=== PATIENT | female | born 1950 | race Hispanic/Latino ===

== ENCOUNTER 2020-09-05 07:36 | Day surgery (SDC) | payer MEDICARE ==
--- NOTE | 2020-09-02 11:48 | Anesthesia Consultation ---
Anesthesia Consult and Med Hx Date of service: 09/05/20 - Airway Anesthetic Teeth Evaluation: Good ROM Head & Neck: Adequate Mental/Hyoid Distance: Adequate Mallampati Class: Class II Intubation Access Assessment: Probably Good - Pulmonary Exam CTA: Yes - Cardiac Exam Cardiac Exam: RRR - Pre-Operative Health Status ASA Pre-Surgery Classification: ASA3 Proposed Anesthetic Plan: General - Pulmonary Hx Smoking: No Hx Respiratory Symptoms: No - Cardiovascular System Hx Hypertension: No Hx Heart Attack/AMI: No Hx Percutaneous Transluminal Coronary Angioplasty (PTCA): No Hx Cardia Arrhythmia: Yes (paroxysmal a-fib; to hole Elquis 48hrs prior to procedure) Hx Pacemaker: No Hx Internal Defibrillator: No - Central Nervous System CVA: No - Endocrine Hx Renal Disease: No Hx Liver Disease: No Hx Insulin Dependent Diabetes: No Hx Non-Insulin Dependent Diabetes: No Hx Hypothyroidism: Yes - Other Systems Hx Obesity: No - Additional Comments Anesthesia Medical History Comments: No hx anesthetic complications.
--- NOTE | 2020-09-05 07:30 | Anesthesia Day of Surgery ---
Anesthesia Day of Surgery - Day of Surgery Patient Examined: Yes Patient H&P Reviewed: Yes Patient is NPO: Yes
[~2020-09-05 07:36] MED LIST: BACTERIOSTATIC SODIUM CHLORIDE 0.9% 30 ML VIAL INFILTRATI ONE; HYDROcodone/ACETAMINOPHEN 5-325 MG TAB PO PRN; LACTATED RINGERS 1,000 ML IV SCH; LIDOCAINE MPF (2%) 20 MG/1 ML VIAL 5 ML ONE; MIDAZOLAM 2 MG/2 ML INJ IV NR; ONDANSETRON 4 MG/2 ML INJ IV PRN; ONDANSETRON 4 MG/2 ML INJ ONE; ceFAZolin/Water 2 GM/20 ML 2 GM/20 ML SYRINGE IV NR; dexAMETHasone 20 MG/5 ML VIAL ONE; ePHEDrine SULFATE 50 MG/1 ML INJ ONE; fentaNYL 100 MCG/2 ML INJ ONE; propofoL 200 MG/20 ML VIAL IV ONE
--- NOTE | 2020-09-05 08:39 | Short Stay Summary ---
Short Stay Documentation Date of service: 09/05/20 - History H&P: obtained from office - Allergies and Medications Current Medications: Allergies No Known Allergies Allergy (Unverified 08/27/20 13:35) Home Medications Medication Instructions Recorded Confirmed Last Taken Type Apixaban [Eliquis] 5 mg PO BID 08/27/20 09/02/20 09/02/20 History Calcium Citrate/Vitamin D3 1 each PO QDAY 08/27/20 08/27/20 09/04/20 History [Citracal + D Maximum Caplet] Dofetilide [Tikosyn] 500 mcg PO BID 08/27/20 08/27/20 09/05/20 05:00 History Fexofenadine HCl [Anastasia Allergy] 180 mg PO QDAY 08/27/20 08/27/20 09/04/20 History Hydroxychloroquine [Plaquenil] 200 mg PO BID 08/27/20 08/27/20 09/04/20 History Levothyroxine [Synthroid] 50 mcg PO QAM 08/27/20 08/27/20 09/05/20 05:00 History Multivit-Min/Iron/Folic/Lutein 1 tab PO QDAY 08/27/20 08/27/20 09/04/20 History [Multivitamin Women 50 Plus Tab] Rosuvastatin Calcium [Crestor] 10 mg PO QHS 08/27/20 08/27/20 09/04/20 History Saccharomyces Boulardii [Daily 250 mg PO QDAY 08/27/20 08/27/20 09/04/20 History Probiotic] Active Medications Hydrocodone Bitart/Acetaminophen (Hydrocodone/Acetaminophen 5-325 Mg Tab) 2 each PO ONCE PRN PRN Reason: Pain, Moderate (4-6) Stop: 09/05/20 20:00 Lactated Ringer's (Lactated Ringers) 1,000 mls @ 100 mls/hr IV DIRECT JESSICA Stop: 09/05/20 23:59 Last Admin: 09/05/20 07:05 Dose: 100 mls/hr Documented by: Cefazolin Sodium (Ancef/Sterile Water 2 Gm/20 Ml) 2 gm in 20 mls @ 80 mls/hr IV PREOP NR; Protocol Stop: 09/05/20 19:00 Midazolam HCl (Midazolam 2 Mg/2 Ml Inj) 2 mg IV ONCE NR Stop: 09/05/20 23:00 Last Admin: 09/05/20 07:08 Dose: 2 mg Documented by: Ondansetron HCl (Ondansetron 4 Mg/2 Ml Inj) 4 mg IV ONCE PRN PRN Reason: Nausea And Vomiting Stop: 09/05/20 13:00 - Brief post op/procedure progress note Date of procedure: 09/05/20 Pre-op diagnosis: left renal stone Post-op diagnosis: same Procedure: eswl---left Anesthesia: GETA Surgeon: RUPERT SHIPLEY Estimated blood loss: minimal Pathology: none Condition: stable - Hospital course Hospital course: ultram,norco,flomax,post op info on chart - Disposition Condition at discharge: Stable Disposition: DC-01 TO HOME OR SELFCARE Short Stay Discharge Plan Follow up with: WEST CHARLES MD [Primary Care Provider] - 7 Days
--- NOTE | 2020-09-05 08:48 | Operative Report ---
PREOPERATIVE DIAGNOSIS: Left renal stone, 5 mm. POSTOPERATIVE DIAGNOSIS: Left renal stone, 5 mm. PROCEDURE: Extracorporal shock wave lithotripsy. SURGEON: Jalen Singleton MD ANESTHESIA: General. ESTIMATED BLOOD LOSS: Minimal. FLUIDS: Crystalloid. COMPLICATIONS: No complications. INDICATIONS: This patient is a 70-year-old female seen in the office for left flank pain. CT of abdomen and pelvis revealed a 5 mm left stone. It was followed conservatively. She continued to have intermittent left flank pain, presents now for intervention. Cardiac clearance was obtained, so it was okay to stop her blood thinner. DESCRIPTION OF PROCEDURE: The patient was taken to the operative suite, placed in a supine position. After adequate general anesthesia, stone was localized in 2 planes using fluoroscopy. Extracorporal shock wave lithotripsy was administered with a maximum kV of ____ 2500 shocks, 5-minute renal pause after 200 shocks was performed without difficulty. Adequate fragmentation could be appreciated. The patient tolerated the procedure well. She was extubated and taken to recovery room. She will go home on [place], Ultram and Flomax. Strain her urine for fragments. JOB# [id number] C/NTS
--- NOTE | 2020-09-05 09:47 | Post Anesthesia Evaluation ---
- Post Anesthesia Evaluation Patient Participated: Yes Airway Patent: Yes Stable Respiratory Function: Yes Nausea/Vomiting: No Temp > 96.8F: Yes Pain Manageable: Yes Adequeate Hydration: Yes Anesthesia Complications: No
[2020-09-05 09:51] VITALS: BP 143/54
== END 2020-09-05 10:05 | disposition home or self-care (01) ==
LOC: OR 07:36
PROVIDERS: ATTEND Urology
DX: N20.0 Calculus of kidney (principal); E78.00 Pure hypercholesterolemia, unspecified; I48.91 Unspecified atrial fibrillation; E03.9 Hypothyroidism, unspecified; Z79.899 Other long term (current) drug therapy; Z90.710 Acquired absence of both cervix and uterus; Z98.891 History of uterine scar from previous surgery; Z72.89 Other problems related to lifestyle; Z98.890 Other specified postprocedural states; Z20.822 Contact with and (suspected) exposure to COVID-19
CPT/HCPCS: 50590; J0690; J2250; J2704; J3010; J7120; U0003; J1100; J2405